=== PATIENT | male | born 1970 | race Caucasian/White ===

== ENCOUNTER 2024-08-23 10:36 | Inpatient (IN) | payer OTHER ==
[2024-08-23 11:11] LABS: Basophils % (A) 0 %; Eosinophils # (A) 0.1 k/uL (0-0.7); Eosinophils % (A) 1 %; HCT 53.9 % (39.0-53.0); HGB 17.7 gm/dL (13.0-17.5); Lymphocytes # (A) 1.6 k/uL (1.0-4.8); Lymphocytes % (A) 15 %; MCH 31.5 pg (25.0-35.0); MCHC 32.8 g/dL (31.0-37.0); MCV 96.1 fL (80.0-100.0); Mean Platelet Volume 7.3; Monocytes # (A) 0.5 k/uL (0-1.0); Monocytes % (A) 5 %; Neutrophils # (A) 8.4 k/uL (1.3-7.7); Neutrophils % (A) 77 %; Platelet Count 234 k/uL (150-450); RBC 5.61 m/uL (4.30-5.90); RDW 13.1 % (11.5-15.5); WBC 10.8 k/uL (3.8-10.6)
[2024-08-23 11:22] LABS: INR 1.1 (<1.2); Partial Thromboplastin Time 23.6 sec (22.0-30.0)
[2024-08-23 11:24] LABS: ALT 32 U/L (4-49); AST 38 U/L (17-59); African American GFR (CKD) 76 (>60 ml/min/1.73 sqM); Albumin 4.4 g/dL (3.5-5.0); Alkaline Phosphatase 128 U/L (38-126); Anion Gap 14 mmol/L; Blood Urea Nitrogen 21 mg/dL (9-20); Calcium 9.6 mg/dL (8.4-10.2); Carbon Dioxide 23 mmol/L (22-30); Chloride 104 mmol/L (98-107); Glucose 165 mg/dL (74-99); Non-African American GFR(CKD) 66 (>60 ml/min/1.73 sqM); Potassium 3.9 mmol/L (3.5-5.1); Sodium 141 mmol/L (137-145); Total Bilirubin 1.9 mg/dL (0.2-1.3); Total Protein 7.6 g/dL (6.3-8.2)
[2024-08-23 11:32] LABS: NT-Pro-B-Type Natriuretic Pept 819 pg/mL
[2024-08-23] MEDS ORDERED: HEPARIN SODIUM 1,000 UN/ML (10ML VL) IV PRN (11:42)
[2024-08-23] MEDS ORDERED: NALOXONE 0.4 MG/ML 1 ML VIAL IV PRN (11:44)
--- NOTE | 2024-08-23 11:45 | CT ---
EXAMINATION TYPE: CT chest angio for PE CT DLP: 475.9 mGycm, Automated exposure control for dose reduction was used. DATE OF EXAM: 08/23/2024 11:29 AM COMPARISON: None CLINICAL INDICATION:Male, 53 years old with history of sob; PE TECHNIQUE/CONTRAST: CTA scan of the thorax is performed with IV Contrast, patient injected with 70 mL of Isovue 370, pulm onary embolism protocol. MIP images are created and reviewed. FINDINGS: Pulmonary Artery: There are pulmonary emboli identified within the bilateral main pulmonary arteries extending into the segmental and subsegmental branches bilaterally (series 401, image 70 and 54). No saddle pulmonary embolism at this time. Main pulmonary artery is not dilated and measures 2.8 cm in d iameter. The bilateral main pulmonary arteries are prominent in size with the left measuring 2.9 cm a nd the right measuring 3.2 cm. Reflux of contrast into the IVC. Lungs/Pleura: No pneumothorax. Trace right pleural effusion. Patchy groundglass opacity within the ri ght middle lobe and dependently within the right lower lobe. 6 mm pulmonary nodule within the right m iddle lobe (series 406, image 82). Airway: Large airways are patent. Heart: Mildly enlarged. No pericardial effusion. Small coronary calcifications. There is flattening o f the interventricular septum. Vasculature: No evidence of aortic aneurysm. Mediastinum: No evidence of adenopathy. Musculoskeletal: No acute osseous abnormalities Soft Tissues: Unremarkable. Lower neck: No significant findings. Upper Abdomen: No significant findings. IMPRESSION: 1. Bilateral main pulmonary artery pulmonary emboli extending into the segmental and subsegmental bra nches. Findings of right heart strain. 2. Trace right pleural effusion. 3. Patchy groundglass opacities within the right middle lobe and dependently within the right lower l obe. Favored to represent atelectasis however underlying infectious process is not excluded. 4. Right middle lobe 6 mm pulmonary nodule. Follow-up CT chest in 6-12 months is recommended. Findings called to and discussed with Dr. Ayers at 11:41 AM on 08/23/2024. [facility], , 08/23/2024 11:43 AM
[2024-08-23] MEDS: HEPARIN SODIUM 1,000 UN/ML (10ML VL) IV ONE (11:57)
[2024-08-23] MEDS: SODIUM CHLORIDE 0.9% 1,000 ML IV SCH (12:02)
[2024-08-23] MEDS: HEPARIN SOD,PORK IN 0.45% NACL 25,000 UNIT in 0.45% NACL 1 250ML.BAG IV SCH (12:02)
--- NOTE | 2024-08-23 12:07 | ED ---
SOB HPI - General Chief Complaint: Shortness of Breath Stated Complaint: SHANDRA Time Seen by Provider: 08/23/24 10:48 Source: patient, RN notes reviewed Mode of arrival: ambulatory Limitations: no limitations - History of Present Illness Initial Comments: 53-year-old male presents emergency department with chief complaint of shortness of breath. Patient states she has had increasing shortness for the last few days he states marked exertion. He has had a slight cough without fever or any production with his cough. He has no history of COPD, asthma never had a use of inhaler. Patient denies any recent travel he denies any leg pain or leg swelling. Patient denies any prior cardiac disease he does have some right- sided chest pain - Related Data Allergies Allergy/AdvReac Type Severity Reaction Status Date / Time No Known Allergies Allergy Verified 08/23/24 10:47 Review of Systems ROS Statement: Those systems with pertinent positive or pertinent negative responses have been documented in the HPI. ROS Other: All systems not noted in ROS Statement are negative. Past Medical History Past Medical History: Hyperlipidemia, Hypertension Past Psychological History: No Psychological Hx Reported Smoking Status: Former smoker Past Alcohol Use History: Rare Past Drug Use History: None Reported General Exam Limitations: no limitations General appearance: alert, in no apparent distress Head exam: Present: atraumatic, normocephalic, normal inspection Eye exam: Present: normal appearance, PERRL, EOMI. Absent: scleral icterus, conjunctival injection, periorbital swelling ENT exam: Present: normal exam, normal oropharynx, mucous membranes moist Neck exam: Present: normal inspection, full ROM. Absent: tenderness, meningismus, lymphadenopathy Respiratory exam: Present: normal lung sounds bilaterally. Absent: respiratory distress, wheezes, rales, rhonchi, stridor Cardiovascular Exam: Present: normal rhythm, tachycardia, normal heart sounds. Absent: systolic murmur, diastolic murmur, rubs, gallop, clicks GI/Abdominal exam: Present: soft, normal bowel sounds. Absent: distended, tenderness, guarding, rebound, rigid Extremities exam: Absent: pedal edema, calf tenderness Neurological exam: Present: alert, oriented X3 Course Vital Signs 08/23/24 08/23/24 10:41 11:00 Temperature 97.3 F L Pulse Rate 120 H 105 H Respiratory 28 H 24 Rate Blood Pressure 156/89 O2 Sat by Pulse 85 L 90 L Oximetry Medical Decision Making - Medical Decision Making Was pt. sent in by a medical professional or institution (KENNETH Contreras, PACKAGE DELIVERY DRIVER, urgent care, hospital, or custodial...) When possible be specific @ -[No] Did you speak to anyone other than the patient for history (EMS, parent, family, police, friend...)? What history was obtained from this source @ -[No] Did you review nursing and triage notes (agree or disagree)? Why? @ -[I reviewed and agree with nursing and triage notes] Were old charts reviewed (outside hosp., previous admission, EMS record, old EKG, old radiological studies, urgent care reports/EKG's, custodial records)? Report findings @ -[No old charts were reviewed] Differential Diagnosis (chest pain, altered mental status, abdominal pain women, abdominal pain men, vaginal bleeding, weakness, fever, dyspnea, syncope, headache, dizziness, GI bleed, back pain, seizure, CVA, palpatations, mental health, musculoskeletal)? @ -Differential Dyspnea: Coronary syndrome, arrhythmia, tamponade, asthma, COPD, pulmonary embolism, pneumonia, pneumothorax, pulmonary effusion, anaphylaxis, diabetic ketoacidosis, flailed chest, pulmonary contusion, diaphragmatic rupture, anemia, neuromuscular, this is not meant to be an all-inclusive list. EKG interpreted by me (3pts min.). @ -[As above] X-rays interpreted by me (1pt min.). @ -[None done] CT interpreted by me (1pt min.). @ -CT angio of the chest showing bilateral main pulmonary artery PEs with right heart strain U/S interpreted by me (1pt. min.). @ -[None done] What testing was considered but not performed or refused? (CT, X-rays, U/S, labs)? Why? @ -[None] What meds were considered but not given or refused? Why? @ -[None] Did you discuss the management of the patient with other professionals (professionals i.e. KENNETH Contreras, PACKAGE DELIVERY DRIVER, lab, RT, psych nurse, social science research assistant, montessori program director, teacher, loan servicing officer, rn case manager)? Give summary @ -Case discussed with radiologist, admitting physician Dr. Edwards, vascular regarding bilateral PEs without right heart strain Was smoking cessation discussed for >3mins.? @ -[No] Was critical care preformed (if so, how long)? @ -35 minutes Were there social determinants of health that impacted care today? How? (Homelessness, low income, unemployed, alcoholism, drug addiction, transportation, low edu. Level, literacy, decrease access to med. care, long-term, rehab)? @ -[No] Was there de-escalation of care discussed even if they declined (Discuss DNR or withdrawal of care, Hospice)? DNR status @ -[No] What co-morbidities impacted this encounter? (DM, HTN, Smoking, COPD, CAD, Cancer, CVA, ARF, Chemo, Hep., AIDS, mental health diagnosis, sleep apnea, morbid obesity)? @ -[None] Was patient admitted / discharged? Hospital course, mention meds given and route, prescriptions, significant lab abnormalities, going to OR and other pertinent info. @ -Admitted patient presented for increasing dyspnea patient had blood work ordered and sent immediately CT. Patient found to have bilateral PE with right heart strain. Patient started on heparin high-dose, patient did have stat echo ordered, vascular updated, admitting physician updated. Undiagnosed new problem with uncertain prognosis? @ -[No] Drug Therapy requiring intensive monitoring for toxicity (Heparin, Nitro, Insulin, Cardizem)? @ -[No] Were any procedures done? @ -[No] Diagnosis/symptom? @ -Bilateral PEs, right heart strain Acute, or Chronic, or Acute on Chronic? @ -Acute Uncomplicated (without systemic symptoms) or Complicated (systemic symptoms)? @ -Complicated Side effects of treatment? @ -[No] Exacerbation, Progression, or Severe Exacerbation? @ -[No] Poses a threat to life or bodily function? How? (Chest pain, USA, SD, pneumonia, PE, COPD, DKA, ARF, appy, cholecystitis, CVA, Diverticulitis, Homicidal, Suicidal, threat to staff... and all critical care pts) @ -Yes PE causing cardiac/pulmonary arrest - Lab Data Result diagrams: 08/23/24 10:59 08/23/24 10:59 Lab Results 08/23/24 08/23/24 08/23/24 Range/Units 10:59 10:59 10:59 WBC 10.8 H (3.8-10.6) k/uL RBC 5.61 (4.30-5.90) m/uL Hgb 17.7 H (13.0-17.5) gm/dL Hct 53.9 H (39.0-53.0) % MCV 96.1 (80.0-100.0) fL MCH 31.5 (25.0-35.0) pg MCHC 32.8 (31.0-37.0) g/dL RDW 13.1 (11.5-15.5) % Plt Count 234 (150-450) k/uL MPV 7.3 Neutrophils % 77 % Lymphocytes % 15 % Monocytes % 5 % Eosinophils % 1 % Basophils % 0 % Neutrophils # 8.4 H (1.3-7.7) k/uL Lymphocytes # 1.6 (1.0-4.8) k/uL Monocytes # 0.5 (0-1.0) k/uL Eosinophils # 0.1 (0-0.7) k/uL Basophils # 0.0 (0-0.2) k/uL PT 12.0 (10.0-12.5) sec INR 1.1 (<1.2) APTT 23.6 (22.0-30.0) sec Sodium 141 (137-145) mmol/L Potassium 3.9 (3.5-5.1) mmol/L Chloride 104 (98-107) mmol/L Carbon Dioxide 23 (22-30) mmol/L Anion Gap 14 mmol/L BUN 21 H (9-20) mg/dL Creatinine 1.24 (0.66-1.25) mg/dL Est GFR (CKD-EPI)AfAm 76 (>60 ml/min/1.73 sqM) Est GFR (CKD-EPI)NonAf 66 (>60 ml/min/1.73 sqM) Glucose 165 H (74-99) mg/dL Calcium 9.6 (8.4-10.2) mg/dL Magnesium 2.0 (1.6-2.3) mg/dL Total Bilirubin 1.9 H (0.2-1.3) mg/dL AST 38 (17-59) U/L ALT 32 (4-49) U/L Alkaline Phosphatase 128 H (38-126) U/L Troponin I (0.000-0.034) ng/mL NT-Pro-B Natriuret Pep 819 pg/mL Total Protein 7.6 (6.3-8.2) g/dL Albumin 4.4 (3.5-5.0) g/dL 08/23/24 Range/Units 10:59 WBC (3.8-10.6) k/uL RBC (4.30-5.90) m/uL Hgb (13.0-17.5) gm/dL Hct (39.0-53.0) % MCV (80.0-100.0) fL MCH (25.0-35.0) pg MCHC (31.0-37.0) g/dL RDW (11.5-15.5) % Plt Count (150-450) k/uL MPV Neutrophils % % Lymphocytes % % Monocytes % % Eosinophils % % Basophils % % Neutrophils # (1.3-7.7) k/uL Lymphocytes # (1.0-4.8) k/uL Monocytes # (0-1.0) k/uL Eosinophils # (0-0.7) k/uL Basophils # (0-0.2) k/uL PT (10.0-12.5) sec INR (<1.2) APTT (22.0-30.0) sec Sodium (137-145) mmol/L Potassium (3.5-5.1) mmol/L Chloride (98-107) mmol/L Carbon Dioxide (22-30) mmol/L Anion Gap mmol/L BUN (9-20) mg/dL Creatinine (0.66-1.25) mg/dL Est GFR (CKD-EPI)AfAm (>60 ml/min/1.73 sqM) Est GFR (CKD-EPI)NonAf (>60 ml/min/1.73 sqM) Glucose (74-99) mg/dL Calcium (8.4-10.2) mg/dL Magnesium (1.6-2.3) mg/dL Total Bilirubin (0.2-1.3) mg/dL AST (17-59) U/L ALT (4-49) U/L Alkaline Phosphatase (38-126) U/L Troponin I 0.050 H* (0.000-0.034) ng/mL NT-Pro-B Natriuret Pep pg/mL Total Protein (6.3-8.2) g/dL Albumin (3.5-5.0) g/dL - EKG Data -: EKG Interpreted by Me EKG Comments: EKG performed at 10: 53 sinus tachycardia rate of 102 TX 144 QRS 105 QT/QTc 357/416 noted S1 Q 3 T3 Critical Care Time Critical Care Time: Yes Total Critical Care Time: 35 Disposition Clinical Impression: Bilateral pulmonary embolism Disposition: ADMITTED IP TO [facility] Condition: Serious Referrals: Ruperto Gonzalez DO [Primary Care Provider] - 1-2 days Time of Disposition: 12:06
--- NOTE | 2024-08-23 12:52 | P.GSCN ---
History of Present Illness Consult date: 08/23/24 Reason for Consult: Bilateral pulmonary embolism Requesting physician: Jaime Ayers History of present illness: This is a pleasant 53-year-old male who presented to the emergency department with shortness of breath specially on exertion. Patient states about 2 days ago he started noticing some shortness of breath with ambulating around 15 to 20 feet. Today he got out of his car and walked into a restaurant and was extremely short of breath and not feeling well. He decided to come to the emergency department for further evaluation. He was noted to have elevated troponin, he had a CT angiogram of the chest that reported bilateral pulmonary embolism with right heart strain. Vascular surgery was consulted for PE with heart strain. His past medical history includes hyperlipidemia and hypertension. He is a non-smoker. Patient denies any previous history of DVT or pulmonary embolism. He denies any family history of clotting disorders or personal history of clotting disorders. No recent surgeries or traveling. He does state that he is homeless and lives in his car and he is sitting for long periods of time. He has never had a colonoscopy, states he was supposed to do the Cologuard but never received it. Patient is requiring 2 L of oxygen per nasal cannula with oxygen saturation 91%. Patient also noted to be tachycardic on admission with heart rate as high as 120 and oxygen saturation was 85% on room air. He currently denies any chest pain. He is not short of breath at rest. No pain or swelling in his lower extremities reported. Review of Systems A 14 point review systems was completed all pertinent positives and negatives as stated in the HPI. Past Medical History Past Medical History: Hyperlipidemia, Hypertension Past Psychological History: No Psychological Hx Reported Smoking Status: Former smoker Past Alcohol Use History: Rare Past Drug Use History: None Reported Medications and Allergies Home Medications Medication Instructions Recorded Confirmed Type Atorvastatin [Lipitor] 40 mg PO DAILY 08/23/24 08/23/24 History Metoprolol Succinate (ER) [Toprol 100 mg PO DAILY 08/23/24 08/23/24 History Xl] Allergies Allergy/AdvReac Type Severity Reaction Status Date / Time No Known Allergies Allergy Verified 08/23/24 13:21 Surgical - Exam Vital Signs Temp Pulse Resp BP Pulse Ox 97.3 F L 120 H 28 H 156/89 85 L 08/23/24 10:41 08/23/24 10:41 08/23/24 10:41 08/23/24 10:41 08/23/24 10:41 General appearance: The patient is alert, oriented, appears in no acute distress. HET: Head is normocephalic and atraumatic. Pupils are equal and reactive. Neck: Supple. Heart: Regular. Lungs: Equal expansion, normal respiratory effort. Abdomen: Soft, nontender, nondistended. Extremities: Normal skin color and turgor. No lower extremity edema. Neurological: No focal deficits. Strength and sensation are grossly intact. Results - Labs 08/23/24 10:59 08/23/24 10:59 Abnormal Lab Results - Last 24 Hours (Table) 08/23/24 08/23/24 08/23/24 Range/Units 10:59 10:59 10:59 WBC 10.8 H (3.8-10.6) k/uL Hgb 17.7 H (13.0-17.5) gm/dL Hct 53.9 H (39.0-53.0) % Neutrophils # 8.4 H (1.3-7.7) k/uL BUN 21 H (9-20) mg/dL Glucose 165 H (74-99) mg/dL Total Bilirubin 1.9 H (0.2-1.3) mg/dL Alkaline Phosphatase 128 H (38-126) U/L Troponin I 0.050 H* (0.000-0.034) ng/mL Diabetes panel 08/23/24 Range/Units 10:59 Sodium 141 (137-145) mmol/L Potassium 3.9 (3.5-5.1) mmol/L Chloride 104 (98-107) mmol/L Carbon Dioxide 23 (22-30) mmol/L BUN 21 H (9-20) mg/dL Creatinine 1.24 (0.66-1.25) mg/dL Glucose 165 H (74-99) mg/dL Calcium 9.6 (8.4-10.2) mg/dL AST 38 (17-59) U/L ALT 32 (4-49) U/L Alkaline Phosphatase 128 H (38-126) U/L Total Protein 7.6 (6.3-8.2) g/dL Albumin 4.4 (3.5-5.0) g/dL Calcium panel 08/23/24 Range/Units 10:59 Calcium 9.6 (8.4-10.2) mg/dL Albumin 4.4 (3.5-5.0) g/dL Pituitary panel 08/23/24 Range/Units 10:59 Sodium 141 (137-145) mmol/L Potassium 3.9 (3.5-5.1) mmol/L Chloride 104 (98-107) mmol/L Carbon Dioxide 23 (22-30) mmol/L BUN 21 H (9-20) mg/dL Creatinine 1.24 (0.66-1.25) mg/dL Glucose 165 H (74-99) mg/dL Calcium 9.6 (8.4-10.2) mg/dL Adrenal panel 08/23/24 Range/Units 10:59 Sodium 141 (137-145) mmol/L Potassium 3.9 (3.5-5.1) mmol/L Chloride 104 (98-107) mmol/L Carbon Dioxide 23 (22-30) mmol/L BUN 21 H (9-20) mg/dL Creatinine 1.24 (0.66-1.25) mg/dL Glucose 165 H (74-99) mg/dL Calcium 9.6 (8.4-10.2) mg/dL Total Bilirubin 1.9 H (0.2-1.3) mg/dL AST 38 (17-59) U/L ALT 32 (4-49) U/L Alkaline Phosphatase 128 H (38-126) U/L Total Protein 7.6 (6.3-8.2) g/dL Albumin 4.4 (3.5-5.0) g/dL - Imaging Comments: Thank you bilateral main pulmonary artery pulmonary emboli extending into the segmental and subsegmental branches. Findings of right heart strain. Trace right pleural effusion. Patchy groundglass opacities within the right middle lobe and dependently within the right lower lobe. Favored to represent atelect asis however underlying infectious process is not excluded. Right middle lobe 6 mm pulmonary nodule. Follow-up CT chest in 6 to 12 months is recommended. Assessment and Plan Assessment: 1. Bilateral pulmonary emboli with reported right heart strain on CTA 2. Dyspnea with exertion 3. Elevated troponin 4. Sedentary lifestyle, patient lives in his car Plan: 1. Continue heparin drip as ordered 2. Patient may have heart healthy diet, n.p.o. after midnight 3. Repeat troponin as ordered 4. Patient is tentatively scheduled for EKOS tomorrow 5. Await echocardiogram results 6. Continue with recommendations from pulmonology Thank you for this consultation, we will continue to follow. The impression and plan of care has been dictated as directed. I performed a history and examination of this patient, discussed the same with the dictator. I agree with the dictator's note ,documented as a scribe. Any additional findings or plans will be noted.
--- NOTE | 2024-08-23 13:24 | P.HPIM ---
History of Present Illness H&P Date: 08/23/24 Patient is a 53-year-old male with no significant past medical history presenting with sudden onset shortness of breath that started about 2 days ago. He claims that he was not feeling well for about 1 week. He denies any long flights, long car rides or any other period of immobilization. He started having some chest tightness as well as shortness of breath along with some nausea. She denies any abdominal pain, urinary or bowel complaints. He has not noticed any lower extremity swelling. He had some chills, but denies any fevers. Family history of heart disease in his father, no history of blood clots. He recently started seeing primary care, has not had any screening colon oscopy. In the ED, temperature was 97.3, pulse 140, respiratory rate 28, blood pressure 156/89, saturating 84% on room air. WBC 10.8, creatinine 1.24, troponin 0.05, magnesium 2, proBNP 819. EKG independently interpreted, shows sinus tachycardia with S1 Q3 T3 pattern. Chest CTA shows bilateral main pulmonary artery pulmonary emboli extending into the segmental and subsegmental branches with ri ght heart strain, trace right pleural effusion possible right middle lobe atelectasis, right middle lobe 6 mm pulmonary nodule. Patient started on heparin drip. Vascular surgery consulted, pulmonology consulted. Pertinent positives and negatives as discussed in HPI, a complete review of systems was performed and all other systems are negative. Patient seen and examined at bedside. Vital signs reviewed General: nontoxic, no distress, appears at stated age Derm: warm, dry Head: atraumatic, normocephalic, symmetric Eyes: EOMI, no lid lag, anicteric sclera, pupils equal round reactive to light ENT: Nose and ears atraumatic Neck: No thyromegaly, supple Mouth: no lip lesion, mucus membranes moist Cardiovascular: S1S2 tachycardia, no murmur, no edema Lungs: clear to auscultation bilateral, no rhonchi, no rales, no wheeze, no accessory muscle use, supplemental O2 Abdominal: soft, nontender to palpation, no guarding, no appreciable organomegaly Ext: no gross muscle atrophy, muscle strength muscle strength 5 out of 5 in all 4 extremities, no contractures Neuro: CN II-XII grossly intact Psych: Alert, oriented, appropriate affect Assessment/Plan: Active: Acute unprovoked bilateral submassive pulmonary emboli with right heart strain NSTEMI, type II, secondary to pulmonary emboli Leukocytosis, reactive Sinus tachycardia Acute hypoxic respiratory failure secondary to above -Continue heparin drip, monitor APTT, monitor for bleeding -Hemodynamically stable -Echocardiogram and lower extremity Dopplers pending -Continue to trend troponin -Continue telemetry monitoring -Pulmonology and vascular surgery consulted -Wean oxygen -Patient will likely need outpatient regular cancer screening Pulmonary nodule -Follow-up in 6 to 12 months The patient is admitted with an anticipated greater than 2 midnight stay as inpatient status for evaluation of pulmonary embolism. CODE STATUS: Full code DVT prophylaxis:. Heparin drip Anticipated discharge date: Pending clinical course Anticipated discharge place: Pending clinical course A total of 55 minutes was spent on the care of this complex patient more than 50% of the time was spent in counseling and care coordination. Past Medical History Past Medical History: Hyperlipidemia, Hypertension Past Psychological History: No Psychological Hx Reported Smoking Status: Former smoker Past Alcohol Use History: Rare Past Drug Use History: None Reported Medications and Allergies Home Medications Medication Instructions Recorded Confirmed Type Atorvastatin [Lipitor] 40 mg PO DAILY 08/23/24 08/23/24 History Metoprolol Succinate (ER) [Toprol 100 mg PO DAILY 08/23/24 08/23/24 History Xl] Allergies Allergy/AdvReac Type Severity Reaction Status Date / Time No Known Allergies Allergy Verified 08/23/24 13:21 Physical Exam Vitals: Vital Signs Temp Pulse Resp BP Pulse Ox 08/23/24 12:03 95 24 119/75 91 L 08/23/24 11:00 105 H 24 90 L 08/23/24 10:41 97.3 F L 120 H 28 H 156/89 85 L Intake and Output 08/22/24 08/23/24 08/23/24 22:59 06:59 14:59 Other: Weight 102.058 kg Results CBC & Chem 7: 08/23/24 10:59 08/23/24 10:59 Labs: Abnormal Lab Results - Last 24 Hours (Table) 08/23/24 08/23/24 08/23/24 Range/Units 10:59 10:59 10:59 WBC 10.8 H (3.8-10.6) k/uL Hgb 17.7 H (13.0-17.5) gm/dL Hct 53.9 H (39.0-53.0) % Neutrophils # 8.4 H (1.3-7.7) k/uL BUN 21 H (9-20) mg/dL Glucose 165 H (74-99) mg/dL Total Bilirubin 1.9 H (0.2-1.3) mg/dL Alkaline Phosphatase 128 H (38-126) U/L Troponin I 0.050 H* (0.000-0.034) ng/mL
--- NOTE | 2024-08-23 13:42 | US ---
EXAMINATION TYPE: US venous doppler duplex LE BI DATE OF EXAM: 08/23/2024 1:26 PM COMPARISON: NONE CLINICAL INDICATION: Male, 53 years old with history of PE, evaluate for LE DVT; positive pulmonary e mbolus. TECHNIQUE: The lower extremity deep venous system is examined utilizing real time linear array sonog dunia with graded compression, color doppler sonography, and spectral doppler. SIDE PERFORMED: Bilateral FINDINGS: VESSELS IMAGED: Common Femoral Vein Deep Femoral Vein Greater Saphenous Vein * Femoral Vein Popliteal Vein Small Saphenous Vein * Proximal Calf Veins (* superficial vessels) Right Leg: Internal echoes seen in mid and distal right femoral vein. Mid and distal femoral vein appear noncompressible. Color defect noted. Duplicate popliteal vein seen, echoes seen within 1 of the 2 popliteal veins-appears noncompressible . Lack of color flow seen within. Left Leg: *Internal echoes seen within 1 noncompressible PTV at the mid-calf level. No color flow se en in 1 of the 2 PTVs. Color flow seen within all remaining veins. Grayscale, color doppler, spectral doppler imaging performed of the deep veins of the lower extremiti es. IMPRESSION: 1. Right Deep vein thrombosis of the right distal femoral vein with nonocclusive defect in the popli teal vein. 2. Deep left deep vein thrombosis of the posterior tibial vein on the left. [facility], , 08/23/2024 1:40 PM
--- NOTE | 2024-08-23 15:18 | CA ---
Transthoracic Echo Report Name: Randal Candelario Age: 53 Gender: M : 1970 Exam Date: 08/23/2024 12:11 Exam Location: [facility] Ht (in): 70 Wt (lb): 225 Ordering Physician: Jaime Ayers MD Attending/Referring Phys: [id number], [employer] Lelo Rosales, [facility] Procedure CPT: Indications: PE Cardiac Hx: Technical Quality: Good Contrast 1: Total Dose (mL): Contrast 2: Total Dose (mL): MEASUREMENTS (Male / Female) Normal Values 2D ECHO LV Diastolic Diameter PLAX 3.7 cm 4.2 - 5.9 / 3.9 - 5.3 cm LV Systolic Diameter PLAX 2.5 cm IVS Diastolic Thickness 1.4 cm 0.6 - 1.0 / 0.6 - 0.9 cm LVPW Diastolic Thickness 1.5 cm 0.6 - 1.0 / 0.6 - 0.9 cm LV Relative Wall Thickness 0.8 RV Internal Dim ED PLAX 4.4 cm LA Systolic Diameter LX 4.2 cm 3.0 - 4.0 / 2.7 - 3.8 cm LA Volume 34.2 cm??? 18 - 58 / 22 - 52 cm??? LA Volume Index 15.0 cm???/m??? 16 - 28 cm???/m??? M-MODE Aortic Root Diameter MM 3.7 cm AV Cusp Separation MM 2.4 cm DOPPLER AV Peak Velocity 117.2 cm/s AV Peak Gradient 5.5 mmHg MV Area PHT 3.5 cm??? Mitral E Point Velocity 67.8 cm/s Mitral A Point Velocity 86.2 cm/s Mitral E to A Ratio 0.8 MV Deceleration Time 214.1 ms TR Peak Velocity 327.4 cm/s TR Peak Gradient 42.9 mmHg Right Ventricular Systolic Press 47.3 mmHg FINDINGS Left Ventricle Left ventricular ejection fraction is estimated at 60-65 %. Small left ventricular cavity. Moderate concentric left ventricular hypertrophy. Normal left ventricular wall motion. Right Ventricle Moderate right ventricular dilatation. Moderate pulmonary hypertension. Right ventricular systolic pressure estimated at 47 mm hg. Right Atrium Normal right atrial size. No right atrial thrombus or mass seen. Left Atrium Normal left atrial size. No left atrial thrombus or mass present. Mitral Valve Structurally normal mitral valve. No mitral stenosis, regurgitation or prolapse. Aortic Valve Trileaflet aortic valve. No aortic valve stenosis or regurgitation. Tricuspid Valve Structurally normal tricuspid valve. Mild tricuspid regurgitation. Pulmonic Valve Structurally normal pulmonic valve. No pulmonic regurgitation. Pericardium No pericardial or pleural effusion. Aorta Normal size aortic root and proximal ascending aorta. CONCLUSIONS Left ventricular ejection fraction 60-65% Moderate increased left ventricular wall thickness RVSP 47 Moderate right ventricular dilation with mild right ventricular hypokinesis Mild tricuspid regurgitation No pericardial effusion Previewed by: Dr. Robbi Ivory DO (Electronically Signed) Final Date: 23 August 2024 15:17
--- NOTE | 2024-08-23 15:29 | P.CNPUL ---
History of Present Illness Consult date: 08/23/24 Reason for consult: dyspnea History of present illness: This is a 53-year-old male patient who came into the emergency department with shortness of breath over the past 2 days. The patient was diagnosed having extensive bilateral pulmonary embolism as a CTA of the chest showed bilateral PE along with a RV strain pattern. There was filling defect involving the bilateral main pulmonary artery branches extending into segmental and subsegmental branches and RV strain pattern and trace right-sided pleural effusion and areas of patchy groundglass opacities in the right midlung and right lower lobe favoring atelectasis. Another 6 mm nodule seen in the right middle lobe. Doppler of the lower extremity also showed right DVT involving the right distal femoral and popliteal area. There is also DVT in the posterior tibial vein on the left. Currently on IV heparin. The patient's troponin was at 0.05. Electrolytes are all within normal limits. Creatinine is at 1.2 with a BUN of 21. proBNP level is at 819. Hemoglobin is at 17.7 with a white cell count of 10.8. Echocardiogram was completed and the patient has a moderate increase in LV wall thickness and moderate right ventricular dilatation with a ventricular systolic pressure of 47. Ejection fraction has been in the order of 60 to 65%. No pericardial effusion. The patient is currently on 2 L of oxygen by nasal cannula. No previous history of DVT or pulmonary embolism. The patient has been homeless and lives out in his car and has been sitting for prolonged period of time. No previous history of malignancy. His initial pulse ox was 85% on room air oxygen. He was initially tachycardic. Currently hemodynamically stable. His sinus tachycardia is improved and his blood pressure has normalized. Review of Systems Constitutional: Reports as per HPI Eyes: denies as per HPI, denies blurred vision, denies bulging eye, denies decreased vision, denies diplopia, denies discharge, denies dry eye, denies irritation, denies itching, denies pain, denies photophobia, denies loss of peripheral vision, denies loss of vision, denies tunnel vision/blind spots Ears: deny: decreased hearing, ear discharge, earache, tinnitus Ears, nose, mouth and throat: Reports as per HPI Breasts: absent: as per HPI, gynecomastia Cardiovascular: Reports decreased exercise tolerance Respiratory: Reports dyspnea Gastrointestinal: Reports as per HPI Genitourinary: Reports as per HPI Musculoskeletal: Reports as per HPI Musculoskeletal: absent: ankle pain, ankle stiffness, ankle swelling, as per HPI , elbow pain, elbow stiffness, elbow swelling, foot pain, foot stiffness, foot swelling, hand pain, hand stiffness, hand swelling, hip pain, hip stiffness, hip swelling, knee pain, knee stiffness, knee swelling, shoulder pain, shoulder stiffness, shoulder swelling, wrist pain, wrist stiffness, wrist swelling Integumentary: Reports as per HPI Neurological: Reports as per HPI Psychiatric: Reports as per HPI Endocrine: Reports as per HPI Hematologic/Lymphatic: Reports as per HPI Allergic/Immunologic: Reports as per HPI Past Medical History Past Medical History: Hyperlipidemia, Hypertension Past Psychological History: No Psychological Hx Reported Smoking Status: Former smoker Past Alcohol Use History: Rare Past Drug Use History: None Reported Medications and Allergies Home Medications Medication Instructions Recorded Confirmed Type Atorvastatin [Lipitor] 40 mg PO DAILY 08/23/24 08/23/24 History Metoprolol Succinate (ER) [Toprol 100 mg PO DAILY 08/23/24 08/23/24 History Xl] Allergies Allergy/AdvReac Type Severity Reaction Status Date / Time No Known Allergies Allergy Verified 08/23/24 13:21 Physical Exam Vitals: Vital Signs Temp Pulse Resp BP Pulse Ox 08/23/24 14:22 99.9 F H 89 22 101/88 94 L 08/23/24 12:03 95 24 119/75 91 L 08/23/24 11:00 105 H 24 90 L 08/23/24 10:41 97.3 F L 120 H 28 H 156/89 85 L Intake and Output 08/23/24 08/23/24 08/23/24 06:59 14:59 22:59 Other: Weight 102.058 kg The patient appeared well nourished and normally developed. Vital signs as documented. Head exam is unremarkable. No scleral icterus or corneal arcus noted. Neck is without jugular venous distension, thyromegaly, or carotid bruits. Carotid upstrokes are brisk bilaterally. Lungs are clear to auscultation and percussion. Cardiac exam reveals the PMI to be normally sized and situated. Rhythm is regular. First and second heart sounds normal. No murmurs, rubs or gallops. Abdominal exam reveals normal bowel sounds, no masses, no organomegaly and no aortic enlargement. Extremities are nonedematous and both femoral and pedal pulses are normal. Examination of the skin revealed no evidence of significant rashes, suspicious appearing nevi or other concerning lesions. Neurologically, the patient is awake and alert and the patient does not have any focal neurological deficit. Cranial nerves are essentially intact. Results - Laboratory Findings CBC and BMP: 08/23/24 10:59 08/23/24 10:59 PT/INR, D-dimer PT 12.0 sec (10.0-12.5) 08/23/24 10:59 INR 1.1 (<1.2) 08/23/24 10:59 Abnormal lab findings: Abnormal Labs 08/23/24 08/23/24 08/23/24 10:59 10:59 10:59 WBC 10.8 H Hgb 17.7 H Hct 53.9 H Neutrophils # 8.4 H BUN 21 H Glucose 165 H Total Bilirubin 1.9 H Alkaline Phosphatase 128 H Troponin I 0.050 H* - Diagnostic Findings CT scan - chest: image reviewed U/S of Legs: image reviewed Assessment and Plan Plan: Acute submassive pulmonary embolism, with filling defects involving the bilateral main pulmonary artery branches extending into the segmental and subsegmental branches bilaterally, unprovoked. The patient has evidence of RV strain in addition to elevated troponins and mild elevation of the proBNP level. Patient also has moderate pulm hypertension with a RVSP of 47 Acute lower extremity DVT involving the femoral/popliteal on the right and tibial on the left Acute hypoxic respiratory failure currently on 2 L of O2 nasal cannula Acute sinus tachycardia Acute shortness of breath secondary to above Hypertension Hyperlipidemia Plan Keep O2 at 2 L/min nasal cannula Continue IV heparin Discussed the case with vascular surgery and the patient is a good candidate for manual thrombectomy of the clots/Inari procedure Echocardiogram was noted Hemodynamically stable at this point in time Will continue to follow
[2024-08-23] MEDS: ACETAMINOPHEN TAB 325 MG TAB PO PRN (16:34)
[2024-08-23] MEDS: HYDROmorphone 1 MG/ML 1 ML SYRINGE IVP PRN (23:00)
[2024-08-24 06:59] LABS: Basophils % (A) 0 %; Eosinophils % (A) 0 %; HCT 49.2 % (39.0-53.0); HGB 15.4 gm/dL (13.0-17.5); Lymphocytes # (A) 1.4 k/uL (1.0-4.8); Lymphocytes % (A) 14 %; MCH 30.3 pg (25.0-35.0); MCHC 31.3 g/dL (31.0-37.0); MCV 96.8 fL (80.0-100.0); Mean Platelet Volume 7.5; Monocytes # (A) 0.6 k/uL (0-1.0); Monocytes % (A) 6 %; Neutrophils # (A) 7.9 k/uL (1.3-7.7); Neutrophils % (A) 77 %; Platelet Count 218 k/uL (150-450); RBC 5.08 m/uL (4.30-5.90); RDW 13.2 % (11.5-15.5); WBC 10.2 k/uL (3.8-10.6)
[2024-08-24] MEDS: MIDAZOLAM 2 MG/2 ML VIAL IVP ONE (07:35)
[2024-08-24] MEDS: fentaNYL (PF) 50 MCG/1 ML VIAL IVP ONE (07:35)
[2024-08-24] MEDS: LIDOCAINE 1% INJ 10MG/ML (20 ML MDV) SQ ONE (07:35)
[2024-08-24] MEDS: SODIUM CHLORIDE 0.9% 1,000 ML IV ONE (07:40)
[2024-08-24] MEDS ORDERED: ALTEPLASE 2 MG VIAL (CATHFLO) IV STA (08:06)
[2024-08-24] MEDS: ALTEPLASE 2 MG VIAL (CATHFLO) IA ONE ×2 (08:11)
--- NOTE | 2024-08-24 08:31 | P.OP ---
Date of Procedure: 08/24/24 Preoperative Diagnosis: Bilateral pulmonary artery embolism with right heart strain Postoperative Diagnosis: Same Procedure(s) Performed: Ultrasound-guided right common femoral vein access Percutaneous thrombectomy of right main pulmonary artery with extirpation of matter Percutaneous thrombectomy of right and left interlobar with extirpation of matter Percutaneous thrombectomy of truncus anterior with extirpation of matter Percutaneous thrombectomy of the left main pulmonary artery with extirpation of matter Pulmonary angiogram Conscious sedation x 50 minutes Anesthesia: local Surgeon: Ad Stone Estimated Blood Loss (ml): 400 Pathology: none sent Condition: stable Disposition: PACU Indications for Procedure: 53-year-old gentleman presented to the emergency department secondary to shortness of breath and was found to have bilateral pulmonary embolism with elevated troponin consistent with right heart strain presents to the [facility] for elective thrombectomy of bilateral pulmonary artery embolisms. Description of Procedure: After written and informed consent was obtained the patient all risks, benefits and competitions were described patient was brought to the [facility] laid in a supine position. The area of the groins were prepped and draped in usual sterile fashion. Utilizing ultrasound guidance the right common femoral vein was located and shown to be patent without thrombus and then was accessed with a micropuncture kit and utilizing Seldinger technique an 8-Swedish sheath was placed. 035 guidewire was then advanced into the IVC under fluoroscopic guidance. Track was dilated and the Inari 24-Swedish sheath was placed. An angled pigtail catheter was then placed and utilizing a J-wire the heart was entered and advanced into the pulmonary artery. Pigtail catheter was then removed over the wire and a JR4 catheter was placed and the right pulmonary artery was entered and wire was placed to the main right pulmonary artery. The wire was then exchanged for an Amplatz wire in normal fashion. Patient was administered heparin at this time. A thrombectomy catheter was then advanced and pulmonary angiogram was obtained demonstrating thrombus within the right main and segmental branches as well as the left main. Mechanical thrombectomy was then performed with aspiration of multiple large clots. Aspiration was performed 4 times. Right pulmonary angiogram was then obtained demonstrating resolution of thrombus within the main pulmonary artery as well as the truncus anterior. Catheter was then selectively placed in the left main pulmonary artery and mechanical thrombectomy was performed 3 times. Pulmonary and gram was then obtained demonstrating complete resolution of thrombus with good filling to the outer aspects of the long on both sides. Once completed all catheters and wires were removed. A suture was placed in the right groin after the sheath was removed for hemostasis. Patient tolerated procedure well and was sent to recovery.
[2024-08-24] MEDS: IOPAMIDOL-370 100ML BTL INJ ONE (08:32)
--- NOTE | 2024-08-24 08:41 | IR ---
EXAMINATION TYPE: IR angio pulmonary BILAT DATE OF EXAM: 08/24/2024 COMPARISON: NONE HISTORY: Fluoroscopy time. Fluoroscopy was provided to the referring clinician. [facility], , 08/24/2024 8:38 AM
--- NOTE | 2024-08-24 11:01 | P.PN ---
Subjective Progress Note Date: 08/24/24 Hospital Course: 53-year-old male with no significant past medical history presenting with sudden onset shortness of breath that started about 2 days ago. In the ED, temperature was 97.3, pulse 140, respiratory rate 28, blood pressure 156/89, saturating 84% on room air. WBC 10.8, creatinine 1.24, troponin 0.05, magnesium 2, proBNP 819. EKG independently interpreted, shows sinus tachycardia with S1 Q3 T3 pattern. Chest CTA shows bilateral main pulmonary artery pulmonary emboli extending into the segmental and subsegmental branches with right heart strain, trace right pleural effusion possible right middle lobe atelectasis, right middle lobe 6 mm pulmonary nodule. Patient started on heparin drip. Vascular surgery consulted, pulmonology consulted. Patient underwent percutaneous thrombectomy. Subjective: Patient seen and examined at bedside. No acute events overnight. Claims that breathing has improved after thrombectomy. Pertinent positives and negatives as discussed above, a complete review of systems was performed and all other systems are negative. Vitals Signs Reviewed. General: Nontoxic, no distress, appears at stated age Derm: Warm, dry Head: Atraumatic, normocephalic, symmetric Eyes: EOMI, no lid lag, anicteric sclera Mouth: No lip lesion, mucus membranes moist Cardiovascular: S1S2 reg, no murmur Lungs: CTA bilateral, no rhonchi, no rales, no accessory muscle use, supplemental oxygen Abdominal: Soft, nontender to palpation, no guarding, no appreciable organomegaly Ext: No gross muscle atrophy, no edema, no contractures Neuro: CN II-XI grossly intact, no focal neuro deficits Psych: Alert, oriented, appropriate affect Data Reviewed Today: Pertinent Labs: WBC 10.2, hemoglobin 15.4, platelet 218, APTT 52.2, troponin 0.272. Imaging: Echocardiogram showed LVEF 60 to 65%, RVSP 47, moderate right ventricular dilatation with mild right ventricular hypokinesis, mild TR. Assessment and Plan: Patient is severely ill, needs close monitoring. Prognosis guarded. Active: Acute unprovoked bilateral submassive pulmonary emboli with right heart strain s tatus post thrombectomy NSTEMI, type II, secondary to pulmonary emboli Leukocytosis, reactive, resolving Sinus tachycardia, resolved Acute hypoxic respiratory failure secondary to above Acute bilateral DVT -Continue heparin drip, monitor APTT, monitor for bleeding -Hemodynamically stable -Continue telemetry monitoring -Vascular surgery operative note reviewed, status post thrombectomy -Wean oxygen -Pulmonology also following -Patient will likely need outpatient regular cancer screening -Continue home metoprolol succinate 100 mg daily Dyslipidemia -Continue home atorvastatin 40 mg daily Pulmonary nodule -Follow-up in 6 to 12 months DVT ppx: Heparin drip Code status: Full code Anticipated discharge place: Pending clinical course Anticipated discharge time: Pending clinical course Objective - Vital Signs Vital signs: Vital Signs Temp 97.5 F L 08/24/24 09:23 Pulse 86 08/24/24 10:38 Resp 18 08/24/24 10:38 BP 118/62 08/24/24 10:38 Pulse Ox 96 08/24/24 10:38 FiO2 Intake & Output 08/23/24 08/24/24 08/24/24 18:59 06:59 18:59 Intake Total 100 243.709 349.103 Output Total 300 350 Balance 100 -56.291 -0.897 Weight 102.058 kg 134 kg Intake: IV 200 Intake, IV Titration 243.709 149.103 Amount Heparin Sod,Pork in 0.45% 243.709 149.103 NaCl 25,000 unit In 0.45 % NaCl 1 250ml.bag @ 18 UNITS/KG/HR 18.37 mls/hr IV .[id number] [facility] Rx#: [id number] Oral 100 Output: Urine 300 350 Other: Voiding Method Urinal Urinal - Labs CBC & Chem 7: 08/24/24 05:37 08/23/24 10:59 Labs: Abnormal Lab Results - Last 24 Hours (Table) 08/23/24 08/23/24 08/23/24 Range/Units 10:59 10:59 10:59 WBC 10.8 H (3.8-10.6) k/uL Hgb 17.7 H (13.0-17.5) gm/dL Hct 53.9 H (39.0-53.0) % Neutrophils # 8.4 H (1.3-7.7) k/uL APTT (22.0-30.0) sec BUN 21 H (9-20) mg/dL Glucose 165 H (74-99) mg/dL Total Bilirubin 1.9 H (0.2-1.3) mg/dL Alkaline Phosphatase 128 H (38-126) U/L Troponin I 0.050 H* (0.000-0.034) ng/mL 08/23/24 08/23/24 08/23/24 Range/Units 14:08 17:43 17:43 WBC (3.8-10.6) k/uL Hgb (13.0-17.5) gm/dL Hct (39.0-53.0) % Neutrophils # (1.3-7.7) k/uL APTT 62.0 H (22.0-30.0) sec BUN (9-20) mg/dL Glucose (74-99) mg/dL Total Bilirubin (0.2-1.3) mg/dL Alkaline Phosphatase (38-126) U/L Troponin I 0.167 H* 0.272 H* (0.000-0.034) ng/mL 08/24/24 08/24/24 Range/Units 05:37 05:37 WBC (3.8-10.6) k/uL Hgb (13.0-17.5) gm/dL Hct (39.0-53.0) % Neutrophils # 7.9 H (1.3-7.7) k/uL APTT 52.2 H (22.0-30.0) sec BUN (9-20) mg/dL Glucose (74-99) mg/dL Total Bilirubin (0.2-1.3) mg/dL Alkaline Phosphatase (38-126) U/L Troponin I (0.000-0.034) ng/mL
[2024-08-24] MEDS: ATORVASTATIN 40 MG TAB PO SCH (11:52)
[2024-08-24] MEDS: METOPROLOL SUCCINATE (ER) 100 MG TAB.ER.24H PO SCH (11:52)
--- NOTE | 2024-08-24 14:33 | P.PN ---
Subjective Progress Note Date: 08/24/24 This is a 53-year-old male patient who came into the emergency department with shortness of breath over the past 2 days. The patient was diagnosed having extensive bilateral pulmonary embolism as a CTA of the chest showed bilateral PE along with a RV strain pattern. There was filling defect involving the bilateral main pulmonary artery branches extending into segmental and s ubsegmental branches and RV strain pattern and trace right-sided pleural effusion and areas of patchy groundglass opacities in the right midlung and right lower lobe favoring atelectasis. Another 6 mm nodule seen in the right middle lobe. Doppler of the lower extremity also showed right DVT involving the right distal femoral and popliteal area. There is also DVT in the posterior tibial vein on the left. Currently on IV heparin. The patient's troponin was at 0.05. Electrolytes are all within normal limits. Creatinine is at 1.2 with a BUN of 21. proBNP level is at 819. Hemoglobin is at 17.7 with a white cell count of 10.8. Echocardiogram was completed and the patient has a moderate i ncrease in LV wall thickness and moderate right ventricular dilatation with a ventricular systolic pressure of 47. Ejection fraction has been in the order of 60 to 65%. No pericardial effusion. The patient is currently on 2 L of oxygen by nasal cannula. No previous history of DVT or pulmonary embolism. The patient has been homeless and lives out in his car and has been sitting for prolonged period of time. No previous history of malignancy. His initial pulse ox was 85% on room air oxygen. He was initially tachycardic. Currently hemodynamically stable. His sinus tachycardia is improved and his blood pressure has normalized. On 08/24/2024, the patient is post percutaneous thrombectomy of bilateral pulmonary embolism using the Inari device. The patient did extremely well and the patient remains hemodynamically stable and currently is on 2 L of oxygen by nasal cannula with a pulse ox of 95%. The patient remains on IV heparin. No chest pain. No shortness of breath. The white cell count of 10.2 with hemoglobin 15.4 and a platelet count of 218. Troponin peaked at 0.2. Hemo dynamically stable. Echocardiogram was also noted from yesterday and the patient has preserved LV function with a normal ejection fraction. The patient's right ventricular systolic pressure was estimated to be 47. Objective - Vital Signs Vital signs: Vital Signs Temp 97.5 F L 10/15/24 09:23 Pulse 88 08/24/24 10:08 Resp 18 08/24/24 10:08 BP 125/65 08/24/24 10:08 Pulse Ox 95 08/24/24 10:08 FiO2 Intake & Output 08/23/24 08/24/24 08/24/24 18:59 06:59 18:59 Intake Total 100 243.709 349.103 Output Total 300 350 Balance 100 -56.291 -0.897 Weight 102.058 kg 134 kg Intake: IV 200 Intake, IV Titration 243.709 149.103 Amount Heparin Sod,Pork in 0.45% 243.709 149.103 NaCl 25,000 unit In 0.45 % NaCl 1 250ml.bag @ 18 UNITS/KG/HR 18.37 mls/hr IV .[id number] [facility] Rx#: [id number] Oral 100 Output: Urine 300 350 Other: Voiding Method Urinal Urinal - Exam The patient appeared well nourished and normally developed. Vital signs as documented. The patient is currently on 2 L of O2 nasal cannula,, comfortable Head exam is unremarkable. No scleral icterus or corneal arcus noted. Neck is without jugular venous distension, thyromegaly, or carotid bruits. Carotid upstrokes are brisk bilaterally. Lungs are clear to auscultation and percussion. Cardiac exam reveals the PMI to be normally sized and situated. Rhythm is regular. First and second heart sounds normal. No murmurs, rubs or gallops. Abdominal exam reveals normal bowel sounds, no masses, no organomegaly and no aortic enlargement. Extremities are nonedematous and both femoral and pedal pulses are normal. Examination of the skin revealed no evidence of significant rashes, suspicious appearing nevi or other concerning lesions. Neurologically, the patient is awake and alert and the patient does not have any focal neurological deficit. Cranial nerves are essentially intact. - Labs CBC & Chem 7: 08/24/24 05:37 08/23/24 10:59 Labs: Abnormal Lab Results - Last 24 Hours (Table) 08/23/24 08/23/24 08/23/24 Range/Units 10:59 10:59 10:59 WBC 10.8 H (3.8-10.6) k/uL Hgb 17.7 H (13.0-17.5) gm/dL Hct 53.9 H (39.0-53.0) % Neutrophils # 8.4 H (1.3-7.7) k/uL APTT (22.0-30.0) sec BUN 21 H (9-20) mg/dL Glucose 165 H (74-99) mg/dL Total Bilirubin 1.9 H (0.2-1.3) mg/dL Alkaline Phosphatase 128 H (38-126) U/L Troponin I 0.050 H* (0.000-0.034) ng/mL 08/23/24 08/23/24 08/23/24 Range/Units 14:08 17:43 17:43 WBC (3.8-10.6) k/uL Hgb (13.0-17.5) gm/dL Hct (39.0-53.0) % Neutrophils # (1.3-7.7) k/uL APTT 62.0 H (22.0-30.0) sec BUN (9-20) mg/dL Glucose (74-99) mg/dL Total Bilirubin (0.2-1.3) mg/dL Alkaline Phosphatase (38-126) U/L Troponin I 0.167 H* 0.272 H* (0.000-0.034) ng/mL 08/24/24 08/24/24 Range/Units 05:37 05:37 WBC (3.8-10.6) k/uL Hgb (13.0-17.5) gm/dL Hct (39.0-53.0) % Neutrophils # 7.9 H (1.3-7.7) k/uL APTT 52.2 H (22.0-30.0) sec BUN (9-20) mg/dL Glucose (74-99) mg/dL Total Bilirubin (0.2-1.3) mg/dL Alkaline Phosphatase (38-126) U/L Troponin I (0.000-0.034) ng/mL Assessment and Plan Plan: Acute submassive pulmonary embolism, with filling defects involving the bilateral main pulmonary artery branches extending into the segmental and subsegmental branches bilaterally, unprovoked. The patient has evidence of RV strain in addition to elevated troponins and mild elevation of the proBNP level. Patient also has moderate pulm hypertension with a RVSP of 47. The patient is status post percutaneous clot thrombectomy of bilateral pulmonary embolism using Inari device. Currently hemodynamically stable Acute lower extremity DVT involving the femoral/popliteal on the right and tibial on the left Acute hypoxic respiratory failure currently on 2 L of O2 nasal cannula Acute sinus tachycardia, improved Acute shortness of breath secondary to above Hypertension Hyperlipidemia Plan Keep O2 at 2 L/min nasal cannula Continue IV heparine Echocardiogram was noted Hemodynamically stable at this point in time We will transition the patient to oral anticoagulation as of tomorrow Will continue to follow
[2024-08-25 04:37] VITALS: RESP 18
[2024-08-25 06:38] LABS: Basophils % (A) 0 %; Eosinophils # (A) 0.4 k/uL (0-0.7); Eosinophils % (A) 5 %; HCT 44.8 % (39.0-53.0); HGB 14.3 gm/dL (13.0-17.5); Lymphocytes # (A) 1.8 k/uL (1.0-4.8); Lymphocytes % (A) 23 %; MCH 31.3 pg (25.0-35.0); MCHC 31.9 g/dL (31.0-37.0); MCV 98.1 fL (80.0-100.0); Mean Platelet Volume 7.6; Monocytes # (A) 0.6 k/uL (0-1.0); Monocytes % (A) 7 %; Neutrophils # (A) 4.9 k/uL (1.3-7.7); Neutrophils % (A) 62 %; Platelet Count 200 k/uL (150-450); RBC 4.57 m/uL (4.30-5.90); RDW 13.1 % (11.5-15.5); WBC 7.9 k/uL (3.8-10.6)
[2024-08-25 07:03] LABS: African American GFR (CKD) >90 (>60 ml/min/1.73 sqM); Anion Gap 6 mmol/L; Blood Urea Nitrogen 17 mg/dL (9-20); Calcium 9.1 mg/dL (8.4-10.2); Carbon Dioxide 26 mmol/L (22-30); Chloride 109 mmol/L (98-107); Glucose 92 mg/dL (74-99); Non-African American GFR(CKD) 82 (>60 ml/min/1.73 sqM); Potassium 4.7 mmol/L (3.5-5.1); Sodium 141 mmol/L (137-145)
[2024-08-25 07:26] VITALS: TEMP 98.5
--- NOTE | 2024-08-25 09:18 | P.PN ---
Subjective Progress Note Date: 08/25/24 Principal diagnosis: Submassive PE, bilateral lower extremity DVT Patient is seen and examined today as a follow-up. He is post op day #1 for pulmonary thrombectomy with INARI. Yesterday patient stated following procedure that breathing was improved at that time. He continues to state breathing has improved. He has been up and ambulating with minimal shortness of breath. He is currently on room air oxygen saturation 93 to 96%. Heparin drip currently infusing. Denies any pain in his lower extremities. Denies any chest pain. Does state that he has a chronic cough in the morning with postnasal drip and requesting antihistamine. Has some discomfort in the right groin, no bleeding no hematoma reported. Objective - Vital Signs Vital signs: Vital Signs Temp 98.5 F 08/25/24 07:15 Pulse 70 08/25/24 07:15 Resp 18 08/25/24 07:15 BP 127/80 08/25/24 07:15 Pulse Ox 91 L 08/25/24 07:15 FiO2 Intake & Output 08/24/24 08/25/24 08/25/24 18:59 06:59 18:59 Intake Total 450.000 Output Total 1350 250 Balance -900.000 -250 Weight 130 kg Intake: IV 200 Intake, IV Titration 250.000 Amount Heparin Sod,Pork in 0.45% 250.000 NaCl 25,000 unit In 0.45 % NaCl 1 250ml.bag @ 18 UNITS/KG/HR 18.37 mls/hr IV .[id number] [facility] Rx#: [id number] Output: Urine 1350 250 Other: Voiding Method Urinal Toilet Urinal # Voids 2 - Exam General appearance: The patient is alert, oriented, appears in no acute distress. HET: Head is normocephalic and atraumatic. Pupils are equal and reactive. Neck: Supple. Heart: Regular. Lungs: Equal expansion, normal respiratory effort. Abdomen: Soft, nontender, nondistended. Extremities: Normal skin color and turgor. Right groin with suture in place. No bleeding, mild ecchymosis, no hematoma noted. Neurological: No focal deficits. Strength and sensation are grossly intact. - Labs CBC & Chem 7: 08/25/24 05:20 08/25/24 05:20 Labs: Abnormal Lab Results - Last 24 Hours (Table) 08/24/24 08/25/24 08/25/24 Range/Units 15:18 05:20 05:20 APTT 46.0 H 62.0 H (22.0-30.0) sec Chloride 109 H (98-107) mmol/L Assessment and Plan Assessment: 1. Bilateral pulmonary emboli with right heart strain status post percutaneous thrombectomy 2. Dyspnea with exertion, improved 3. Elevated troponin secondary to pulmonary embolism with heart strain 4. Bilateral lower extremity deep vein thrombosis 5. Sedentary lifestyle, patient lives in his car Plan: 1. Start Eliquis 10 mg 1 [id number] mg BID, taper dose as ordered 2. Discontinue heparin drip 3. Patient is status post percutaneous pulmonary thrombectomy 4. Continue heart healthy diet 5. Encourage ambulation 6. Continue with recommendations from pulmonology 7. Consult to social work for homelessness, evaluate medication coverage Thank you for this consultation, patient is cleared from vascular surgery for discharge. The impression and plan of care has been dictated as directed. Dr. Lu I performed a history and examination of this patient, discussed the same with the dictator. I agree with the dictator's note ,documented as a scribe. Any additional findings or plans will be noted.
[2024-08-25] MEDS: LORATADINE-PSEUDOEPH 5-120 MG 1 EACH TAB.ER.12H PO SCH (09:30)
[2024-08-25] MEDS: Apixaban Initiation Dose--VTE 5 MG TAB PO SCH (09:30)
--- NOTE | 2024-08-25 09:47 | CDI ---
Documentation Clarification Form Date: 08/25/2024 From: [place] Jon RN CCDS Phone: [phone] Admit Date: 08/23/2024 11:44:00 AM Patient Name: Randal Candelario Visit Number: [id number] Discharge Date: ATTENTION: The Clinical Documentation Specialists (CDI) and [facility] Coding Staff appreciate your assistance in clarifying documentation. Please respond to the clarification below the line at the bottom and electronically sign. The CDI & [facility] Coding staff will review the response and follow-up if needed. Please note: Queries are made part of the Legal Health Record. If you have any questions, please contact the author of this message via ITS. Doctor/Provider: Alfonso Edwards MD: Right heart strain is documented in the Vascular consult 08/23 and in subsequent notes. Additional clarification regarding the Right heart strain is requested. History/Risk Factors: 53-year-old male with a history of HLD and HTN who presents with SOB especially on exertion Clinical Indicators: 08/23 Triage VS: 156/89, 97.3, 120, 28, 85% room air 08/23 Vascular Surgery consult, Assessment: 1. Bilateral pulmonary emboli with reported right heart strain on CTA" 08/24 Operative note, Pre/Post-operative diagnosis: Bilateral pulmonary artery embolism with right heart strain 08/23 Troponin: 0.050, 0.167, 0.272 08/23 BNP: 819 08/23 Echo EF 60-65%, Moderate right ventricular dilation with mild right ventricular hypokinesis 08/23 CTA Chest, Impression: "1. Bilateral main pulmonary artery pulmonary emboli extending into the segmental and subsegmental branches. Findings of right heart strain." Treatment: Percutaneous thrombectomy of right main pulmonary artery, right and left interlobar, anterior truncus and left main pulmonary artery Please clarify the acuity and etiology of Right heart strain, if known: [ x ] Acute Cor pulmonale due to pulmonary embolism [ ] Unable to determine [ ] Other, please specify MTDD
[2024-08-25 10:51] VITALS: BP 131/79; PULSE 76
--- NOTE | 2024-08-25 11:32 | P.DS ---
Providers Date of admission: 08/23/24 11:44 Expected date of discharge: 08/25/24 Attending physician: Alfonso Edwards Consults: 08/23/24 11:44 Consult Physician Routine Consulting Provider: Yady Josue Consult Reason/Comments: PE Do you want consulting provider notified?: Yes Consult Physician Urgent Consulting Provider: Dex Romero Consult Reason/Comments: PE with right heart strain Do you want consulting provider notified?: Already Contacted Primary care physician: Ruperto Gonzalez Hospital Course: Discharge Diagnosis: Acute unprovoked bilateral submassive pulmonary emboli with right heart strain status post thrombectomy NSTEMI, type II, secondary to pulmonary emboli Leukocytosis, reactive Sinus tachycardia, resolved Acute hypoxic respiratory failure secondary to above Acute bilateral DVT Dyslipidemia Pulmonary nodule Hospital Course: 53-year-old male with no significant past medical history presenting with sudden onset shortness of breath that started about 2 days ago. In the ED, temperature was 97.3, pulse 140, respiratory rate 28, blood pressure 156/89, saturating 84% on room air. WBC 10.8, creatinine 1.24, troponin 0.05, magnesium 2, proBNP 819. EKG independently interpreted, shows sinus tachycardia with S1 Q3 T3 pattern. Chest CTA shows bilateral main pulmonary artery pulmonary emboli extending into the segmental and subsegmental branches with right heart strain, trace right pleural effusion possible right middle lobe atelectasis, right middle lobe 6 mm pulmonary nodule. Patient started on heparin drip. Vascular surgery consulted, pulmonology consulted. Patient underwent percutaneous thrombectomy. Echocardiogram showed LVEF 60 to 65%, RVSP 47, moderate right ventricular dilatation with mild right ventricular hypokinesis, mild TR. patient now transition to [facility]. On room air. Outpatient follow-up with vascular surgery and hematology. Needs cancer screening outpatient. Patient seen and examined at bedside. Vital signs reviewed and stable. General: Nontoxic, no distress, appears at stated age Derm: Warm, dry Head: Atraumatic, normocephalic, symmetric Eyes: EOMI, no lid lag, anicteric sclera Mouth: No lip lesion, mucus membranes moist Cardiovascular: S1S2 reg, no murmur Lungs: CTA bilateral, no rhonchi, no rales, no accessory muscle use Abdominal: Soft, nontender to palpation, no guarding, no appreciable organomegaly Ext: No gross muscle atrophy, no edema, no contractures Neuro: CN II-XI grossly intact, no focal neuro deficits Psych: Alert, oriented, appropriate affect A total of 33 minutes of time were spent preparing this complex discharge summary. Patient was discharged on 08/25/2024 at 1024. Patient Condition at Discharge: Stable Plan - Discharge Summary New Discharge Prescriptions: New Apixaban [Eliquis Starter Pack (for VTE)] 5 - 10 mg PO DIRECTED 30 Days #1 each Continue Metoprolol Succinate (ER) [Toprol XL] 100 mg PO DAILY Atorvastatin [Lipitor] 40 mg PO DAILY Discharge Medication List Atorvastatin [Lipitor] 40 mg PO DAILY 08/23/24 [History] Metoprolol Succinate (ER) [Toprol XL] 100 mg PO DAILY 08/23/24 [History] Apixaban [Eliquis Starter Pack (for VTE)] 5 - 10 mg PO DIRECTED 30 Days #1 each 08/25/24 [Rx] Follow up Appointment(s)/Referral(s): Jarad Kelly [STAFF PHYSICIAN] - 1 Week Ad Stone DO [STAFF PHYSICIAN] - 08/31/24 1:00 pm Ruperto Gonzalez DO [Primary Care Provider] - 08/30/24 11:40 am Yady Josue MD [STAFF PHYSICIAN] - 1 Week Patient Instructions/Handouts: Pulmonary Embolism (DC) Activity/Diet/Wound Care/Special Instructions: Please see PCP, vascular surgery and also hematology. Discharge Disposition: HOME SELF-CARE
--- NOTE | 2024-08-25 16:17 | P.PN ---
Subjective Progress Note Date: 08/25/24 This is a 53-year-old male patient who came into the emergency department with shortness of breath over the past 2 days. The patient was diagnosed having extensive bilateral pulmonary embolism as a CTA of the chest showed bilateral PE along with a RV strain pattern. There was filling defect involving the bilateral main pulmonary artery branches extending into segmental and s ubsegmental branches and RV strain pattern and trace right-sided pleural effusion and areas of patchy groundglass opacities in the right midlung and right lower lobe favoring atelectasis. Another 6 mm nodule seen in the right middle lobe. Doppler of the lower extremity also showed right DVT involving the right distal femoral and popliteal area. There is also DVT in the posterior tibial vein on the left. Currently on IV heparin. The patient's troponin was at 0.05. Electrolytes are all within normal limits. Creatinine is at 1.2 with a BUN of 21. proBNP level is at 819. Hemoglobin is at 17.7 with a white cell count of 10.8. Echocardiogram was completed and the patient has a moderate i ncrease in LV wall thickness and moderate right ventricular dilatation with a ventricular systolic pressure of 47. Ejection fraction has been in the order of 60 to 65%. No pericardial effusion. The patient is currently on 2 L of oxygen by nasal cannula. No previous history of DVT or pulmonary embolism. The patient has been homeless and lives out in his car and has been sitting for prolonged period of time. No previous history of malignancy. His initial pulse ox was 85% on room air oxygen. He was initially tachycardic. Currently hemodynamically stable. His sinus tachycardia is improved and his blood pressure has normalized. On 08/24/2024, the patient is post percutaneous thrombectomy of bilateral pulmonary embolism using the Inari device. The patient did extremely well and the patient remains hemodynamically stable and currently is on 2 L of oxygen by nasal cannula with a pulse ox of 95%. The patient remains on IV heparin. No chest pain. No shortness of breath. The white cell count of 10.2 with hemoglobin 15.4 and a platelet count of 218. Troponin peaked at 0.2. Hemo dynamically stable. Echocardiogram was also noted from yesterday and the patient has preserved LV function with a normal ejection fraction. The patient's right ventricular systolic pressure was estimated to be 47. 08/25/2024, the patient doing extremely well and the patient is having some limited exertional dyspnea and for the most part his oxygenation is improved and the patient is currently on room air oxygen with a pulse ox of 84%. IV heparin has been discontinued and the patient is currently on anticoagulation with Eliquis 10 mg p.o. twice a day. No bleeding. Hemoglobin is at 14.3. White cell count 7.9. BUN 17 with a creatinine of 1 and a sodium levels at 141. No pleurisy. No hemoptysis. No chest pain. No other complaints otherwise for now. Objective - Vital Signs Vital signs: Vital Signs Temp 98.5 F 08/25/24 10:50 Pulse 76 08/25/24 10:50 Resp 18 08/25/24 10:50 BP 131/79 08/25/24 10:50 Pulse Ox 94 L 08/25/24 10:50 FiO2 Intake & Output 08/24/24 08/25/24 08/25/24 18:59 06:59 18:59 Intake Total 450.000 180 Output Total 1350 250 Balance -900.000 -70 Weight 130 kg Intake: IV 200 Intake, IV Titration 250.000 Amount Heparin Sod,Pork in 0.45% 250.000 NaCl 25,000 unit In 0.45 % NaCl 1 250ml.bag @ 18 UNITS/KG/HR 18.37 mls/hr IV .[id number] [facility] Rx#: [id number] Oral 180 Output: Urine 1350 250 Other: Voiding Method Urinal Toilet Toilet Urinal Urinal # Voids 2 - Exam The patient appeared well nourished and normally developed. Vital signs as documented. The patient is currently on room air oxygen, comfortable Head exam is unremarkable. No scleral icterus or corneal arcus noted. Neck is without jugular venous distension, thyromegaly, or carotid bruits. Carotid upstrokes are brisk bilaterally. Lungs are clear to auscultation and percussion. Cardiac exam reveals the PMI to be normally sized and situated. Rhythm is regular. First and second heart sounds normal. No murmurs, rubs or gallops. Abdominal exam reveals normal bowel sounds, no masses, no organomegaly and no aortic enlargement. Extremities are nonedematous and both femoral and pedal pulses are normal. Examination of the skin revealed no evidence of significant rashes, suspicious appearing nevi or other concerning lesions. Neurologically, the patient is awake and alert and the patient does not have any focal neurological deficit. Cranial nerves are essentially intact. - Labs CBC & Chem 7: 08/25/24 05:20 08/25/24 05:20 Labs: Abnormal Lab Results - Last 24 Hours (Table) 08/24/24 08/25/24 08/25/24 Range/Units 15:18 05:20 05:20 APTT 46.0 H 62.0 H (22.0-30.0) sec Chloride 109 H (98-107) mmol/L Assessment and Plan Plan: Acute submassive pulmonary embolism, with filling defects involving the bilateral main pulmonary artery branches extending into the segmental and subsegmental branches bilaterally, unprovoked. The patient has evidence of RV strain in addition to elevated troponins and mild elevation of the proBNP level. Patient also has moderate pulm hypertension with a RVSP of 47. The patient is status post percutaneous clot thrombectomy of bilateral pulmonary embolism using Inari device. Currently hemodynamically stable, the patient was taken off the IV heparin and the patient was started on anticoagulation with Eliquis. Acute lower extremity DVT involving the femoral/popliteal on the right and tibial on the left Acute hypoxic respiratory failure currently on room air oxygen Acute sinus tachycardia, improved Acute shortness of breath secondary to above Hypertension Hyperlipidemia Plan Patient is currently on room air oxygen Lifelong anticoagulation with Eliquis and the patient was started on 10 mg p.o. twice a day Echocardiogram was noted Hemodynamically stable at this point in timew Will continue to follow, possible discharge home, outpatient follow-up with her for pulmonary function test.
== END 2024-08-25 13:17 | disposition home or self-care (01) | DRG 134 ==
LOC: EC 10:36 → 3SCARD 11:44
PROVIDERS: ADMIT Student in an Organized Health Care Education/Training Program; ATTEND Student in an Organized Health Care Education/Training Program
PROC: B31U1ZZ Fluoroscopy of Pulmonary Trunk using Low Osmolar Contrast (ICD-10-PCS; 2024-08-24)
PROC: B31S1ZZ Fluoroscopy of Right Pulmonary Artery using Low Osmolar Contrast (ICD-10-PCS; 2024-08-24)
PROC: 02CQ3ZZ Extirpation of Matter from Right Pulmonary Artery, Percutaneous Approach (ICD-10-PCS; principal; 2024-08-24 07:30)
PROC: 02CR3ZZ Extirpation of Matter from Left Pulmonary Artery, Percutaneous Approach (ICD-10-PCS; 2024-08-24 07:30)
PROC: 02CP3ZZ Extirpation of Matter from Pulmonary Trunk, Percutaneous Approach (ICD-10-PCS; 2024-08-24 07:30)
PROC: B31T1ZZ Fluoroscopy of Left Pulmonary Artery using Low Osmolar Contrast (ICD-10-PCS; 2024-08-24 07:30)
DX: I26.09 Other pulmonary embolism with acute cor pulmonale (principal); J96.01 Acute respiratory failure with hypoxia; I21.A1 Myocardial infarction type 2; I11.9 Hypertensive heart disease without heart failure; D72.829 Elevated white blood cell count, unspecified; I82.411 Acute embolism and thrombosis of right femoral vein; E78.5 Hyperlipidemia, unspecified; I82.431 Acute embolism and thrombosis of right popliteal vein; I82.442 Acute embolism and thrombosis of left tibial vein; Z59.02 Unsheltered homelessness; Z79.01 Long term (current) use of anticoagulants; Z79.899 Other long term (current) drug therapy; Z87.891 Personal history of nicotine dependence; Z82.49 Family history of ischemic heart disease and other diseases of the circulatory system
CPT/HCPCS: 36415; 37184; 37185; 71275; 75743; 76937; 80048; 80053; 83735; 83880; 84484; 85025; 85610; 85730; 86850; 86900; 86901; 93005; 93306; 93970; 96365; 96366; 99291

== ENCOUNTER → 2025-03-09 | Outpatient (CLI) | payer OTHER ==
--- NOTE | 2025-03-09 11:15 | CT ---
EXAMINATION TYPE: CT chest wo con DATE OF EXAM: 03/09/2025 10:35 AM COMPARISON: 08/23/2024 CLINICAL INDICATION: Male, 54 years old with history of R91.1 SOLITARY PULMONARY NODULE; PHH, PULMONA RY NODULE TECHNIQUE: CT of the chest without IV contrast. Coronal and sagittal reconstructions performed. CT DLP: 594 mGycm, Automated exposure control for dose reduction was used. FINDINGS: Heart is borderline in size. No pericardial effusion. LAD coronary calcifications are present. Ectatic ascending aorta 3.9 cm redemonstrated. Bovine configuration to the aortic arch. Large caliber main right and left pulmonary arteries measuring up to 2.8 cm suggesting underlying pul monary hypertension. No thoracic lymphadenopathy with CT size criteria. There is some patchy subpleural opacity lateral right mid to lower lunge that appears new. 6 mm right middle lobe pulmonary nodule remains unchanged for 6 months. No other consolidation or pleural effusion. Visualized upper abdomen shows no gross abnormality. Bones: Scattered mild degenerative disc disease throughout. There is a right paracentral disc osteoph yte complex at T11-T12 which may cause at least mild spinal canal stenosis. IMPRESSION: 1. New patchy subpleural opacity lateral right mid to lower lung. Correlate for any symptoms of pneum onia. Otherwise, scarring as a sequela of the extensive previous pulmonary emboli is a consideration. Recommend 6 month follow-up CT to assess for clearance. 2. The 6 month follow-up CT can also reassess the 6 mm right middle lobe pulmonary nodule. Stability over the last 6 months would favor a benign etiology at this time. 3. LAD coronary artery calcifications. Possible underlying pulmonary hypertension. [facility], , 03/09/2025 11:12 AM
== END | disposition home or self-care (01) ==
LOC: RADCTMAIN 10:13
PROVIDERS: ATTEND Internal Medicine
DX: I25.10 Atherosclerotic heart disease of native coronary artery without angina pectoris (principal); R91.8 Other nonspecific abnormal finding of lung field; J98.4 Other disorders of lung
CPT/HCPCS: 71250

== ENCOUNTER 2025-05-29 21:20 | Emergency (ER) | payer OTHER ==
[2025-05-29 21:30] VITALS: BP 176/99; PULSE 80; RESP 17; TEMP 98.2
--- NOTE | 2025-05-29 21:48 | ED ---
ENT HPI - General Chief complaint: ENT Stated complaint: Facial pressure, slight hearing loss Time Seen by Provider: 05/29/25 21:32 Source: patient Mode of arrival: ambulatory Limitations: no limitations - History of Present Illness Initial comments: 54-year-old male presenting with chief complaint of left-sided ear pain. Has been ongoing for 4 to 5 days. States that he feels a fullness in the ear and also has some muffled hearing. States he tried putting peroxide in the ear to help with symptoms but this did not do anything. No fever. No cough. No discharge from the ear. Denies any injury or trauma. - Related Data Home Medications Medication Instructions Recorded Confirmed Atorvastatin [Lipitor] 40 mg PO DAILY 08/23/24 08/23/24 Metoprolol Succinate (ER) [Toprol 100 mg PO DAILY 08/23/24 08/23/24 XL] Previous Rx's Medication Instructions Recorded Apixaban [Eliquis Starter Pack 5 - 10 mg PO DIRECTED 30 Days 08/25/24 (for VTE)] #1 each Amoxicillin 875 mg PO Q12HR 7 Days #14 tablet 05/29/25 Ofloxacin 0.3% Otic Soln [Floxin 5 drops LEFT EAR BID 7 Days #5 ml 05/29/25 0.3% Otic Soln] Allergies Allergy/AdvReac Type Severity Reaction Status Date / Time No Known Allergies Allergy Verified 05/29/25 21:26 Review of Systems ROS Statement: Those systems with pertinent positive or pertinent negative responses have been documented in the HPI. ROS Other: All systems not noted in ROS Statement are negative. Past Medical History Past Medical History: Deep Vein Thrombosis (DVT), Hyperlipidemia, Hypertension, Pulmonary Embolus (PE) History of Any Multi-Drug Resistant Organisms: None Reported Past Surgical History: No Surgical Hx Reported Past Anesthesia/Blood Transfusion Reactions: No Reported Reaction Past Psychological History: No Psychological Hx Reported Smoking Status: Former smoker Past Alcohol Use History: Rare Past Drug Use History: None Reported General Exam Limitations: no limitations General appearance: alert, in no apparent distress Head exam: Present: atraumatic, normocephalic, normal inspection Eye exam: Present: normal appearance, EOMI Expanded Ear exam: Present: normal external inspection TM/Canal exam: Perforation: Left TM, Canal Tenderness: Left TM Mouth exam: Present: normal external inspection Neck exam: Present: normal inspection. Absent: meningismus Respiratory exam: Absent: respiratory distress Cardiovascular Exam: Present: regular rate Neurological exam: Present: alert, oriented X3 Psychiatric exam: Present: normal affect, normal mood Skin exam: Present: warm, dry, normal color Course Vital Signs 05/29/25 21:26 Temperature 98.2 F Pulse Rate 80 Respiratory 17 Rate Blood Pressure 176/99 O2 Sat by Pulse 96 Oximetry Medical Decision Making - Medical Decision Making Was pt. sent in by a medical professional or institution ([facility], [facility] [facility], urgent care, hospital, or [facility]...) When possible be specific @ -No Did you speak to anyone other than the patient for history (EMS, parent, family, police, friend...)? What history was obtained from this source @ -No Did you review nursing and triage notes (agree or disagree)? Why? @ -I reviewed and agree with nursing and triage notes Were old charts reviewed (outside hosp., previous admission, EMS record, old EKG, old radiological studies, urgent care reports/EKG's, [facility] records)? Report findings @ -No old charts were reviewed Differential Diagnosis (chest pain, altered mental status, abdominal pain women, abdominal pain men, vaginal bleeding, weakness, fever, dyspnea, syncope, headache, dizziness, GI bleed, back pain, seizure, CVA, palpatations, mental health, musculoskeletal)? @ -Differential includes otitis media, otitis externa, mastoiditis, not an all- inclusive list EKG interpreted by me (3pts min.). @ -As above X-rays interpreted by me (1pt min.). @ -None done CT interpreted by me (1pt min.). @ -None done U/S interpreted by me (1pt. min.). @ -None done What testing was considered but not performed or refused? (CT, X-rays, U/S, labs)? Why? @ -None What meds were considered but not given or refused? Why? @ -None Did you discuss the management of the patient with other professionals (professionals i.e. [facility] Contreras, [facility] [facility], lab, RT, psych nurse, social economist, marine designer, teacher, transit authority police officer, adult protective caseworker)? Give summary @ -No Was smoking cessation discussed for >3mins.? @ -No Was critical care preformed (if so, how long)? @ -No Were there social determinants of health that impacted care today? How? (Homelessness, low income, unemployed, alcoholism, drug addiction, transportation, low edu. Level, literacy, decrease access to med. care, detention, rehab)? @ -No Was there de-escalation of care discussed even if they declined (Discuss DNR or withdrawal of care, Hospice)? DNR status @ -No What co-morbidities impacted this encounter? (DM, HTN, Smoking, COPD, CAD, Cancer, CVA, ARF, Chemo, Hep., AIDS, mental health diagnosis, sleep apnea, morbid obesity)? @ -None Was patient admitted / discharged? Hospital course, mention meds given and route, prescriptions, significant lab abnormalities, going to OR and other perti nent info. @ -54-year-old male presenting with chief complaint of left ear pain and muffled hearing. On examination there is canal swelling and tenderness. However there is also evidence of a tympanic membrane perforation. We will cover with amoxicillin as well as ofloxacin drops. He is educated on today's findings and treatment plan. Follow-up with PCP. Report back to ER with any new or worsening symptoms. Discussed return parameters and answered all questions. Patient conveyed verbal understanding and agreed to the plan. I discussed this case in detail with my attending Dr. Boykin Undiagnosed new problem with uncertain prognosis? @ -No Drug Therapy requiring intensive monitoring for toxicity (Heparin, Nitro, Insulin, Cardizem)? @ -No Were any procedures done? @ -No Diagnosis/symptom? @ -tympanic membrane perforation, otitis externa Acute, or Chronic, or Acute on Chronic? @ -Acute Uncomplicated (without systemic symptoms) or Complicated (systemic symptoms)? @ -Uncomplicated Side effects of treatment? @ -No Exacerbation, Progression, or Severe Exacerbation? @ -No Poses a threat to life or bodily function? How? (Chest pain, USA, SC, pneumonia, PE, COPD, DKA, ARF, appy, cholecystitis, CVA, Diverticulitis, Homicidal, Suicidal, threat to staff... and all critical care pts) @ -Unlikely Disposition Clinical Impression: Tympanic membrane perforation, Otitis externa Disposition: HOME SELF-CARE Condition: Good Instructions (If sedation given, give patient instructions): Swimmer's Ear (ED), Ruptured Eardrum (ED) Additional Instructions: Follow-up with your PCP, particularly regarding your agitated membrane to make s ure things are healing well. Report back to ER with any new or worsening symptoms. Apply 5 eardrops to the affected ear twice daily for 7 days Prescriptions: Amoxicillin 875 mg PO Q12HR 7 Days #14 tablet Ofloxacin 0.3% Otic Soln [Floxin 0.3% Otic Soln] 5 drops LEFT EAR BID 7 Days #5 ml Is patient prescribed a controlled substance at d/c from ED?: No Referrals: Ruperto Gonzalez DO [Primary Care Provider] - 1-2 days Time of Disposition: 21:48
[2025-05-29] MEDS: AMOXICILLIN 875 MG TAB PO ONE (22:02)
[2025-05-29] MEDS: OFLOXACIN 0.3% OPHTH DROPS 5 ML BOTTLE LEFT EAR ONE (22:02)
== END 2025-05-29 22:00 | disposition home or self-care (01) ==
LOC: EC 21:20
DX: H72.92 Unspecified perforation of tympanic membrane, left ear (principal); H60.92 Unspecified otitis externa, left ear; Z87.891 Personal history of nicotine dependence
CPT/HCPCS: 99283